=== PATIENT | female | born 1990 | race Hispanic/Latino ===

== ENCOUNTER 2018-06-29 13:52 | Emergency (ER) | payer OTHER ==
[~2018-06-29] VITALS: Ht 157.5 cm; Wt 91.6 kg
--- OUTSIDE RECORDS SUMMARY | 2018-06-29 13:55 | XMS REPORT | Summary of Care ---
Author Author HARRISON Dang, OLYA Organization Unknown Address Unknown Phone Unavailable Care Team Providers Care Factory Focus Technician Name Role Phone JOSE CRUZ BROWNLEE M.D. Unavailable Unavailable OLYA TERRY M.D. Unavailable Unavailable Jose Cruz Brownlee MD Unavailable Unavailable Unavailable Unavailable Functional Status Name Dates Details Functional status health issues are not documented Status: Name Dates Details Cognitive status health issues are not documented Status: Problems Name Dates Details Homelessness (V60.0, Z59.0) Status: Active Diabetes type I (250.01, E10.9) Status: Active Financial problems (V60.2, Z59.8) Status: Active Lower extremity edema (782.3, R60.0) Status: Active History of incarceration (V15.89, Z91.89) Status: Active Medications Name Dates Details None - No Current Medications Active Lantus SoloStar 100 UNIT/ML Subcutaneous Solution Pen-injector Inject 30 untis sq into skin each night * Quantity: 3 Refills: 3 JOSE CRUZ BROWNLEE M.D. * Start : 22-Aug-2017 Active 3 ML Pen Gabapentin 300 MG Oral Capsule TAKE 1 CAPSULE AT BEDTIME. * Quantity: 90 Refills: 2 JOSE CRUZ BROWNLEE M.D. * Start : 22-Aug-2017 Active Allergies and Adverse Reactions Name Dates Details Penicillins (Allergy) Status: Active Procedures Procedure Dates Details Procedures not documented Immunization Name Dates Details Influenza, seasonal, injectable Comments: pt cannot recall Family History Name Dates Details Family history of diabetes mellitus (V18.0, Z83.3) Status: Active Social History Name Dates Details - Status: Name Dates Details Current every day smoker Vital Signs Date Test Result Details [id number]-[id number]:09 Physical Findings 2 Status: Comments: PHQ-9 Adult Depression Screening 6-Zyt-130254:54 BP Systolic 117 mm[Hg] Status: Comments: Location: LUE; Position: Sitting BP Diastolic 76 mm[Hg] Status: Comments: Location: LUE; Position: Sitting Height 62 in Status: Weight 199.375 lb Status: Body Mass Index Calculated 36.47 kg/m2 Status: Body Surface Area Calculated 1.91 m2 Status: Temperature 97.8 f Status: Comments: Method: Temporal Heart Rate 99 /min Status: Respiration Rate 15 /min Status: Physical Findings 0 Status: Comments: Pain Scale Results Date Description Value Details [id number]-Swh-[id number]:21 [O] Hemoglobin A1c (in office) HEMOGLOBIN A1c 10.6 (Abnormal) 7-Lhr-983482:15 Tobacco Use Screening Completed DONE 8-Ryb-401308:34 [QLH] CMP W/EGFR Sodium Level 138 {mEq/l} Range: 135-145 Potassium Level 4.5 {mEq/l} Range: 3.5-5.1 Chloride Level 102 {mEq/l} Range: 95-109 Carbon Dioxide 30 {mEq/l} Range: 24-32 AGAP 10.5 {mEq/l} Range: 10.0-20.0 Glucose Lvl 264 mg/dl (Above high threshold) Range: 70-99 Comments: Adult reference range values reflect the clinical guidelinesof the [place] [employer]. Creatinine Lvl 0.60 mg/dl Range: 0.50-1.40 Blood Urea Nitrogen 6 mg/dl (Below low threshold) Range: 7-22 BUN/Creatinine Ratio 10 Range: 6-25 Total Protein 7.4 g/dl Range: 6.4-8.4 Albumin Lvl 3.5 g/dl Range: 3.5-5.0 Globulin 3.9 g/dl Range: 2.7-4.2 A/G Ratio 0.9 Range: 0.7-1.6 Calcium Level Total 9.3 mg/dl Range: 8.5-10.5 ALT 28 u/l Range: 0-65 AST 13 u/l Range: 0-37 Bili Total 0.3 mg/dl Range: 0.2-1.3 Alk Phos 122 u/l Range: 39-136 eGFR 127 {ML/MIN/1.7} Comments: The eGFR is calculated using the CKD-EPI formula. In most young, healthyindividuals the eGFR will be >90 mL/min/1.73m2. The eGFR declines with age. AneGFR of 60-89 may be normal in some populations, particularly the elderly, forwhom the CKD-EPI formula has not been extensively validated. Use of the eGFR isnot recommended in the following populations:Individuals with unstable creatinine concentrations, including patients and those with serious co-morbid conditions.Patients with extremes in muscle mass or diet.The data above are obtained from the National Kidney Disease Education Program(NKDEP) which additionally recommends that when the eGFR is used in patientswith extremes of body mass index for purposes of drug dosing, the eGFR shouldbe multiplied by the estimated BMI. :34 [QLH] TSH, 3RD GENERATION W/REFLEX TO FT4 TSH 1.750 {uIU/ml} Range: 0.360-3.740 9-Xrp-072670:34 [QH] LIPID PANEL WITH REFLEX TO DIRECT LDL Chol 152 mg/dl Range: <=199 Trig 323 mg/dl (Above high threshold) Range: <=149 HDL Cholesterol 34 mg/dl (Below low threshold) Range: >=61 LDL 53 mg/dl Range: <=99 CHD Risk 4.47 Range: 3.90-5.80 VLDL 65 34 [QH] HIV AB, HIV 1/2, EIA, WITH REFLEXES HIV Ag/Ab 4th Gen Negative Range: Negative :34 [QLH] HEMOGLOBIN A1c Hemoglobin A1c 9.8 % (Above high threshold) Range: <=5.6 :34 [QLH] MICROALBUMIN, RANDOM URINE (W/CREATININE) Urine Microalbumin 49.1 mg/L U Creatinine 67.00 mg/dl Comments: No established reference ranges. Urine Microalbuming Creatinine Ratio 73.3 {MCG/MG_CRE} (Above high threshold) Range: <=30.0 Plan of Care Name Dates Details Planned Observations Planned Goals not documented Planned Encounters Appointment; OLYA TERRY M.D. On: 28-Aug-2017 8:00 Appointment; JOSE CRUZ BROWNLEE M.D. On: 05-Sep-2017 13:15 Interventions Provided Plan* needs cbc, vitamin D checked * CDE * eye exam Instructions Name Dates Details Instructions not documented Encounters Appointment; JOSE CRUZ BROWNLEE M.D. Encounter Diagnosis: Problem not documented On: 22-Aug-2017 13:15 Appointment; OLYA TERRY M.D. Encounter Diagnosis: Problem not documented On: 28-Aug-2017 8:00
[2018-06-29 14:41] VITALS: BP 122/85
[2018-06-29] MEDS ORDERED: ONDANSETRON HCL 4 MG ORAL DISINTEGRATING TAB PO ONE (16:15)
[2018-06-29] MEDS ORDERED: HYDROMORPHONE 2MG/ML 2 MG/ML ML IM ONE ×2 (16:15→17:45)
[2018-07-06] MEDS ORDERED: COLACE100 MG PO (04:49)
[2018-07-06] MEDS ORDERED: SENOKOT8.6 MG PO (04:49)
[2018-07-06] MEDS ORDERED: LEVAQUIN500 MG PO ×3 (04:49→05:12)
== END 2018-06-29 14:42 | disposition home or self-care (01) ==
LOC: ER 13:52
DX: L02.415 Cutaneous abscess of right lower limb (principal)
CPT/HCPCS: 99282

== ENCOUNTER 2018-07-01 18:48 | Emergency (ER) | payer OTHER ==
[~2018-07-01] VITALS: Ht 157.5 cm; Wt 91.6 kg
[2018-07-01] MEDS ORDERED: IBUPROFEN 400 MG TAB ONE (19:26)
[2018-07-01] MEDS ORDERED: ACETAMINOPHEN 325 MG TAB ONE (19:26)
[2018-07-01 19:39] LABS: STREPTOCOCCUS GRP A ANTIGEN NEGATIVE (NEGATIVE)
[2018-07-01 19:48] LABS: INFLUENZAE A&B ANTIGEN (RAPID) NEGATIVE (NEGATIVE)
[2018-07-01 19:54] LABS: CLARITY,URINE TURBID (CLEAR); COLOR,URINE YELLOW (YELLOW); LEUKOCYTE ESTERASE ,URINE 1+ (NEGATIVE); NITRITE,URINE NEGATIVE (NEGATIVE); PROTEIN,URINE DIPSTICK 1+ (NEGATIVE)
[2018-07-01 19:55] LABS: BILIRUBIN,URINE NEGATIVE (NEGATIVE); KETONES,URINE NEGATIVE (NEGATIVE); URINE UROBILINOGEN 0.2 mg/dL (0.2 - 1)
[2018-07-01 19:56] LABS: BACTERIA,URINE FEW /HPF; EPITHELIAL CELLS,URINE FEW /LPF; WBC,URINE (MAN) >50 /HPF (0-5)
[2018-07-01] MEDS ORDERED: IBUPROFEN 600 MG TAB PO ONE (20:00)
[2018-07-01] MEDS ORDERED: IBUPROFEN 200 MG TAB PO ONE (20:00)
[2018-07-01] MEDS ORDERED: ACETAMINOPHEN 325 MG TAB PO ONE (20:00)
--- NOTE | 2018-07-01 20:35 | Diagnostic Imaging Report ---
EXAMINATION: CHEST 2 VIEWS INDICATION: Cough and fever COMPARISON: None FINDINGS: TUBES and LINES: None. LUNGS: Lungs are well inflated. Mild perihilar, peribronchial thickening and perihilar streaky densities may reflect viral infection versus reactive airway disease. Patchy density in the lower lobes. PLEURA: No pleural effusion or pneumothorax. HEART AND MEDIASTINUM: The cardiomediastinal silhouette is unremarkable. BONES AND SOFT TISSUES: No acute osseous lesion. Soft tissues are unremarkable. UPPER ABDOMEN: No free air under the diaphragm. IMPRESSION: Mild perihilar, peribronchial thickening and perihilar streaky densities may reflect viral infection versus reactive airway disease Signed by: Dr. Nash Garza M.D. on 07/01/2018 8:32 PM
[2018-07-01] MEDS ORDERED: LEVOFLOXACIN 500 MG TAB PO ONE (20:45)
[2018-07-02 01:14] VITALS: BP 118/72
[2018-07-06] MEDS ORDERED: COLACE100 MG PO (04:49)
[2018-07-06] MEDS ORDERED: LEVAQUIN500 MG PO ×3 (04:49→05:12)
[2018-07-06] MEDS ORDERED: SENOKOT8.6 MG PO (04:49)
== END 2018-07-01 21:09 | disposition home or self-care (01) ==
LOC: ER 18:48
DX: R50.9 Fever, unspecified (principal); R05 Cough; B34.9 Viral infection, unspecified
CPT/HCPCS: 71046; 81001; 81025; 83518; 87070; 87400

== ENCOUNTER 2018-07-04 11:23 | Observation (INO) | payer OTHER ==
[~2018-07-04] VITALS: Ht 177.8 cm; Wt 91.6 kg
--- OUTSIDE RECORDS SUMMARY | 2018-07-04 11:26 | XMS REPORT ---
Author Author [facility] Address Unknown Phone Unavailable Care Team Providers Care Gambling Broker Name Role Phone Brayan FREEMAN Unavailable Unavailable Problems This patient has no known problems. Allergies, Adverse Reactions, Alerts This patient has no known allergies or adverse reactions. Medications This patient has no known medications. Results Test Description Test Time Test Comments Text Results Atomic Results Result Comments CHEST 2 VIEWS 2018-07-01 20:31:00 [facility] [address] [address] Patient Name: DONN BARRON MR #: [id number] : 1990 Age/Sex: 28/F Req #: [id number] Adm Physician: Ordered by: REDDY MARIA NP Report #: [id number] Location: ER Room/Bed: Procedure: [id number] DX/CHEST 2 VIEWS Exam Date: Exam Time: REPORT STATUS: Signed EXAMINATION: CHEST 2 VIEWS INDICATION: Cough and fever COMPAR ANGELO: None FINDINGS: TUBES and LINES: None. LUNGS: Lungs are well inflated. Mild perihilar, peribronchial thickening and perihilar streaky densities may reflect viral infection versus reactive airway disease. Patchy density in the lower lobes. PLEURA: No pleural effusion or pneumothorax. HEART AND MEDIASTINUM: The cardiomediastinal silhouette is unremarkable. BONES AND SOFT TISSUES: No acute osseous lesion. Soft tissues are unremarkable. UPPER ABDOMEN: No free air under the diaphragm. IMPRESSION: Mild perihilar, peribronchial thickening and perihilar streaky densities may reflect viral infection versus reactive airway disease Signed by: Dr. Nash Hanley M.D. on 07/01/2018 8:32 PM Dictated By: KUMAR HANLEY MD, MD 31 Transcribed By: TANGELA on 07/01/182031 COPY TO: REDDY MARIA NP
[2018-07-04] MEDS ORDERED: SODIUM CHLORIDE 0.9% 1000ML 2,000 ML IV STA (11:41)
[2018-07-04] MEDS ORDERED: ACETAMINOPHEN 325 MG TAB ONE (11:41)
[2018-07-04] MEDS ORDERED: SODIUM CHLORIDE 0.9% 1000ML 1,000 ML ONE (11:45)
[2018-07-04] MEDS ORDERED: ACETAMINOPHEN 325 MG TAB PO ONE (11:45)
[2018-07-04] MEDS ORDERED: ONDANSETRON HCL INJ 2MG/ML 2ML 2 MG/ML VIAL ONE (11:45)
[2018-07-04] MEDS ORDERED: ONDANSETRON HCL INJ 2MG/ML 2ML 2 MG/ML VIAL IV STA (11:50)
[2018-07-04] MEDS ORDERED: FAMOTIDINE 20 MG/2 ML VIAL IV STA (11:52)
[2018-07-04 11:54] LABS: BASOPHILS % 0.3 % (0.0-1.0); EOSINOPHILS # (AUTO) 0.3 (0.0-0.4); EOSINOPHILS % 7.6 % (0.0-6.0); HEMATOCRIT 37.3 % (34.2-44.1); HEMOGLOBIN 13.1 g/dL (12.0-16.0); LYMPHOCYTES # (AUTO) 0.5 (1.0-3.2); LYMPHOCYTES % 12.9 % (18.0-39.1); MEAN CORPUSCULAR HEMOGLOBIN 29.6 pg (28-32); MEAN CORPUSCULAR HGB CONC 35.1 g/dL (31-35); MEAN CORPUSCULAR VOLUME 84.4 fL (81-99); MONOCYTES # (AUTO) 0.4 (0.2-0.8); MONOCYTES % 11.2 % (4.4-11.3); NEUTROPHILS # (AUTO) 2.4 (2.1-6.9); PLATELET COUNT 241 x10e3/uL (140-360); RED BLOOD COUNT 4.42 x10e6/uL (3.6-5.1); RED CELL DISTRIBUTION WIDTH 11.9 % (11.7-14.4)
[2018-07-04 12:00] LABS: INR 0.96; PROTHROMBIN TIME 13.3 seconds (11.9-14.5)
[2018-07-04] MEDS ORDERED: ACETAMINOPHEN 325 MG TAB PO PRN ×2 (12:00→17:30)
[2018-07-04] MEDS ORDERED: DIPHENHYDRAMINE HCL INJ 50 MG/ML VIAL IV ONE (12:00)
[2018-07-04 12:01] LABS: PARTIAL THROMBOPLASTIN TIME 36.7 seconds (23.8-35.5)
[2018-07-04 12:12] LABS: ALBUMIN 3.1 g/dL (3.5-5.0); ALBUMIN/GLOBULIN RATIO 0.7 (0.8-2.0); ANION GAP 12.1 mmol/L (8-16); CALCIUM 9.3 mg/dL (8.4-10.2); CREATININE, SERUM 1.28 mg/dL (0.57-1.11); MAGNESIUM 1.6 MG/DL (1.3-2.1); POTASSIUM 4.1 mmol/L (3.5-5.1)
--- NOTE | 2018-07-04 12:15 | NUR ---
STRAIGHT BRYSON UA DONE ORDERED. PT TOLERATED WELL. PT NOTED TO HAVE REDNESS, NO DRAINAGE OR DISCHARGE NOTED TO ENTIRE PERINEUM. PT REPORTED RECENT DX OF UTI AND IS CURRENTLY TAKING LEVAQUIN FOR UTI. PT ALSO ON BATRIM FOR RECENT ABSCESS TO RT KNEE. INFORMED JAMAR CAGE OF THE REDNESS NOTED.
[2018-07-04] MEDS: VANCOMYCIN 1GM/NS 250 ML 250 ML IV SCH ×2 (12:18→21:08)
--- NOTE | 2018-07-04 12:20 | NUR ---
RUIZ RIOS RN OF COLLECTED UA AND REDNESS TO PERINEUM.
[2018-07-04 13:04] LABS: CLARITY,URINE CLOUDY (CLEAR); COLOR,URINE YELLOW (YELLOW); KETONES,URINE NEGATIVE (NEGATIVE); LEUKOCYTE ESTERASE ,URINE 1+ (NEGATIVE); NITRITE,URINE NEGATIVE (NEGATIVE); PROTEIN,URINE DIPSTICK 2+ (NEGATIVE)
[2018-07-04 13:05] LABS: BILIRUBIN,URINE NEGATIVE (NEGATIVE); URINE UROBILINOGEN 0.2 mg/dL (0.2 - 1)
--- NOTE | 2018-07-04 13:13 | Diagnostic Imaging Report ---
EXAMINATION: CHEST SINGLE (PORTABLE) INDICATION: Fever. COMPARISON: Chest radiograph 07/01/2018. FINDINGS: TUBES and LINES: None. LUNGS: Lungs are not well inflated. No evidence of pneumonia or pulmonary edema. Interval resolution of previously noted interstitial opacity. PLEURA: No pleural effusion or pneumothorax. HEART AND MEDIASTINUM: The cardiomediastinal silhouette is unremarkable. BONES AND SOFT TISSUES: No acute osseous lesion. Soft tissues are unremarkable. UPPER ABDOMEN: No free air under the diaphragm. IMPRESSION: No evidence of pneumonia. Signed by: Dr. Rosie Knox MD on 07/04/2018 1:10 PM
[2018-07-04] MEDS ORDERED: INSULIN REGULAR, HUMAN 100 UNIT/1 ML 3ML VIAL SQ ONE (13:15)
[2018-07-04 13:18] LABS: BACTERIA,URINE MANY /HPF; EPITHELIAL CELLS,URINE FEW /LPF; WBC,URINE (MAN) 21-50 /HPF (0-5)
--- NOTE | 2018-07-04 14:22 | NUR ---
BESIDE BLOOD GLUCOSE 234 MG/DL. INFORMED JAMAR CAGE OF THIS. NO NEW ORDERS AT THIS TIME.
[2018-07-04] MEDS ORDERED: CEFTRIAXONE SOD 1 GM/NS 50 ML 50 ML IV ONE (15:30)
--- NOTE | 2018-07-04 15:38 | Diagnostic Imaging Report ---
EXAM: CT Abdomen and Pelvis WITHOUT contrast INDICATION: Febrile, suspect renal stone. COMPARISON: None. TECHNIQUE: Abdomen and pelvis were scanned utilizing a multidetector helical scanner from the lung base to the pubic symphysis without administration of IV contrast. Absence of intravenous contrast decreases sensitivity for detection of focal lesions and vascular pathology. Coronal and sagittal reformations were obtained. Routine protocol was performed. IV CONTRAST: None. ORAL CONTRAST: Water RADIATION DOSE: Total DLP: 734.9 mGy*cm Dose modulation, iterative reconstruction, and/or weight based adjustment of the mA/kV was utilized to reduce the radiation dose to as low as reasonably achievable. COMPLICATIONS: None FINDINGS: LINES and TUBES: None. LOWER THORAX: Unremarkable HEPATOBILIARY: Diffuse mild fatty liver. No focal hepatic lesions. No biliary ductal dilation. GALLBLADDER: No radio-opaque stones or sludge. No wall thickening. SPLEEN: No splenomegaly. PANCREAS: No focal masses or ductal dilatation. ADRENALS: No adrenal nodules KIDNEYS/URETERS: No hydronephrosis. No evidence of mass. No stones. GI TRACT: No abnormal distention, wall thickening, or evidence of bowel obstruction. Appendix is normal. PELVIC ORGANS/BLADDER: Unremarkable. LYMPH NODES: No lymphadenopathy. VESSELS: Unremarkable. PERITONEUM / RETROPERITONEUM: No free air or fluid. BONES: Unremarkable. SOFT TISSUES: Unremarkable. IMPRESSION: No evidence of renal stone. Diffuse mild fatty liver. Signed by: Dr. Rosie Knox MD on 07/04/2018 3:34 PM
[2018-07-04] MEDS ORDERED: IBUPROFEN 600 MG TAB PO PRN (17:30)
[2018-07-04] MEDS ORDERED: DEXTROSE 50% SYRINGE 50 ML IV PRN (17:30)
[2018-07-04] MEDS: CEFTRIAXONE SOD 1 GM/NS 50 ML 50 ML IV SCH (17:35)
[2018-07-04] MEDS: DIPHENHYDRAMINE HCL 25 MG CAP PO PRN (18:27)
--- NOTE | 2018-07-04 18:50 | NUR ---
RECEIVED REPORT FROM PREVIOUS NURSE. CALL LIGHT WITHIN REACH. NO PAIN OR DISTRESS
[2018-07-04 20:00] VITALS: BP 124/77
[2018-07-04] MEDS: INSULIN REGULAR, HUMAN 100 UNIT/1 ML 3ML VIAL SQ SCH (20:25)
[2018-07-04] MEDS ORDERED: SODIUM CHLORIDE 0.9% 250ML 250 ML ONE (21:31)
[2018-07-05] VITALS (8 sets, daily range): BP systolic 112–127; BP diastolic 60–76
--- NOTE | 2018-07-05 00:23 | NUR ---
Patient complaining of acid reflux. Called and got orders by Dr. Rosales to give the patient Pantoprazole, 40 mg daily.
[2018-07-05] MEDS: PANTOPRAZOLE SOD 40 MG TABEC PO SCH ×2 (00:39→09:17)
[2018-07-05] MEDS: DIPHENHYDRAMINE HCL 25 MG CAP PO PRN ×2 (00:39→06:25)
[2018-07-05] MEDS: CEFTRIAXONE SOD 1 GM/NS 50 ML 50 ML IV SCH ×2 (05:34→16:45)
--- NOTE | 2018-07-05 07:41 | NUR ---
History and Physical cc: fever HPI: 28yoF, pcp?, developed fever for 5 days, Tmax 100.1 Some nausea; no diarrhea/dysuria. PMH: UTI, obesity, DM2 PSHx; csection allergies see emr fh/sh; single; no etoh/cigs/illicits meds; see MAR ROS: no SOLIS/dizziness/leg pain/diarrhea/skin rash/back pain/confusion v/s; revd pe; tired appeairng anicteric ns1s2 mod bs soft nt nd no e/t skin dry n. affect a&ox3; voss labs/meds; rev'd A/P: 28yoF UTI Febrile illness YEE Hyponatremia DM2 PLAN ceftriaxone/vanco vanco trough before 3rd dose hba1c/lipids rehydrate;
[2018-07-05] MEDS ORDERED: ACETAMINOPHEN 325 MG TAB PO PRN (07:45)
[2018-07-05] MEDS ORDERED: SODIUM CHLORIDE 0.9% 1000ML 1,000 ML IV SCH (07:45)
[2018-07-05] MEDS ORDERED: SENNOSIDES 8.6 MG TAB PO PRN (07:45)
[2018-07-05] MEDS ORDERED: ONDANSETRON HCL INJ 2MG/ML 2ML 2 MG/ML VIAL IV PRN (07:45)
[2018-07-05 08:51] LABS: CHOL/HDL RATIO 7.2 (3.0-3.6); CHOLESTEROL 130 MD/DL (0-199); HDL CHOLESTEROL 18 MG/DL (40-60); TRIGLYCERIDES 502 MG/DL (0-149)
[2018-07-05 09:16] LABS: ANION GAP 10.9 mmol/L (8-16); BLOOD UREA NITROGEN 8 mg/dL (7-26); BUN/CREATININE RATIO 10 (6-25); CARBON DIOXIDE 22 mmol/L (22-29); CHLORIDE 101 mmol/L (98-107); CREATININE, SERUM 0.82 mg/dL (0.57-1.11); EST GLOMERULAR FILTRATION RATE > 60 ML/MIN (60-); GLUCOSE 245 mg/dL (74-118); MAGNESIUM 1.6 MG/DL (1.3-2.1); POTASSIUM 3.9 mmol/L (3.5-5.1); SODIUM 130 mmol/L (136-145)
[2018-07-05] MEDS: INSULIN REGULAR, HUMAN 100 UNIT/1 ML 3ML VIAL SQ SCH ×4 (09:17→22:14)
[2018-07-05] MEDS: FAMOTIDINE 20 MG TAB PO SCH ×2 (09:17→16:45)
[2018-07-05] MEDS: VANCOMYCIN 1GM/NS 250 ML 250 ML IV SCH ×2 (10:40→22:15)
[2018-07-05] MEDS ORDERED: FENTANYL CITRATE/PF 100MCG/2 ML INJ ONE (11:28)
--- NOTE | 2018-07-05 14:47 | NUR ---
WOUND CARE CONSULTATION: THIS IS A 28 YEAR OLD FEMALE PATIENT ADMITTED TO [facility] FOR AN ALLERGIC REACTION TO DRUG, FEVER, AND UTI. HEAD TO TOE SKIN ASSESSMENT PREFORMED. THE PATIENT DOES NOT HAVE ANY OPEN WOUNDS AND NO RASH NOTED TO SKIN. PATIENT STATED "THE RASH WAS PRESENT IN THE ER YESTERDAY BUT HAS NOW RESOLVED. INSTRUCTED PATIENT NOT TO SCRATCH THE SKIN IF ITCHING OCCURS TO PREVENT BREAKS IN THE SKIN FROM SCRATCHING; PATIENT VERBALIZED UNDERSTANDING. PATIENT SAID HER ITCHING IS CONTROLLED WITH PRN BENADRYL SHE IS RECEIVING. LABS: WBC3.56 [id number] [id number] BLOOD CULTURE PENDING. URINE CULTURE PENDING. RECOMMENDATION: -APPLY ALTERNATING PRESSURE RELIEF MATTRESS. -APPLY BILATERAL HEEL PROTECTORS WITH PILLOW SUSPENSION. -ENCOURAGE THE PATIENT TO TURN EVERY 2 HOURS AND PRN. -NURSING TO APPLY HYDROCORTISONE CREAM TO AFFECTED AREAS OF SKIN TID PRN FOR ITCH. THANK YOU FOR THIS WOUND CARE CONSULT. Addendum: 07/05/18 at 1457 by Antionette Centeno RN Amended: Links added.
[2018-07-05] MEDS ORDERED: HYDROCORTISONE 1% CREAM 30 GM TUBE TOP PRN (15:00)
[2018-07-05] MEDS: DOCUSATE SODIUM 100 MG CAP PO SCH ×2 (16:00→16:45)
[2018-07-05] MEDS: SENNOSIDES 8.6 MG TAB PO SCH (16:00)
--- NOTE | 2018-07-05 19:00 | NUR ---
Received report from previous nurse. Patient in no pain or distress. Call light within reach. Patient is A&Ox3.
[2018-07-05] MEDS ORDERED: ZOLPIDEM TARTRATE 5 MG TAB PO PRN (21:00)
[2018-07-06] VITALS: BP 103/56
[2018-07-06 01:09] VITALS: BP 103/56
[2018-07-06 04:00] VITALS: BP 104/55
[2018-07-06] MEDS ORDERED: SENOKOT8.6 MG PO (04:49)
[2018-07-06] MEDS ORDERED: LEVAQUIN500 MG PO ×3 (04:49→05:12)
[2018-07-06] MEDS ORDERED: COLACE100 MG PO (04:49)
[2018-07-06] MEDS: CEFTRIAXONE SOD 1 GM/NS 50 ML 50 ML IV SCH (05:23)
--- NOTE | 2018-07-06 07:38 | NUR ---
Gave report to oncoming nurse. Patient in bed. No pain or distress. call light within reach. Daughter at bedside
[2018-07-06 07:45] VITALS: BP 137/79
[2018-07-06 08:00] VITALS: BP 137/79
[2018-07-06] MEDS: INSULIN REGULAR, HUMAN 100 UNIT/1 ML 3ML VIAL SQ SCH ×2 (08:30→12:30)
[2018-07-06] MEDS ORDERED: ONDANSETRON HCL 4 MG ORAL DISINTEGRATING TAB PO PRN (08:45)
[2018-07-06] MEDS: FAMOTIDINE 20 MG TAB PO SCH (08:50)
[2018-07-06] MEDS: PANTOPRAZOLE SOD 40 MG TABEC PO SCH (08:50)
[2018-07-06] MEDS: SENNOSIDES 8.6 MG TAB PO SCH (08:50)
[2018-07-06] MEDS: VANCOMYCIN 1GM/NS 250 ML 250 ML IV SCH (08:50)
[2018-07-06] MEDS: DOCUSATE SODIUM 100 MG CAP PO SCH (08:50)
[2018-07-06] MEDS: PREDNISONE 20 MG TAB PO SCH ×2 (08:50→09:00)
[2018-07-06] MEDS ORDERED: CEFEPIME HCL 1 GM VIAL IV SCH (10:45)
[2018-07-06] MEDS ORDERED: METHYLPREDNISOLONE SOD SUCC 125 MG/2ML VIAL IV NR (11:15)
[2018-07-06] MEDS ORDERED: DIPHENHYDRAMINE HCL INJ 50 MG/ML VIAL IV NR (11:15)
[2018-07-06] MEDS ORDERED: SODIUM CHLORIDE 0.9% IV ONE (11:30)
[2018-07-06] MEDS ORDERED: FAMOTIDINE 20 MG/2 ML VIAL IV NR (11:30)
[2018-07-06] MEDS ORDERED: CEFEPIME HCL IV ONE (11:30)
[2018-07-06 11:44] VITALS: BP 137/82
--- NOTE | 2018-07-06 13:01 | NUR ---
Patient tolerated Cefepime 250mg IV x1 without any reactions. dr Rosales called to notify, received order to provide patients pharmacy information and demographics for Dr. Rosales to call in antibiotic Rx. Patient and family updated.
[2018-07-06] MEDS ORDERED: CEFUROXIME500 MG PO (13:54)
--- NOTE | 2018-07-06 15:00 | NUR ---
PATIENT DISCHARGED HOME WITH WRITTEN INSTRUCTIONS AND PRESCRIPTIONS. SHE VERBALIZED UNDERSTANDING. IV DC'D, CATH INTACT AND SMALL DRESSING APPLIED. PATIENT WHEELED TO PERSONAL VEHICLE FOR MOM TO TAKE HOME IN STABLE CONDITION
== END 2018-07-06 15:05 | disposition home or self-care (01) ==
LOC: ER 11:23 → ERHOLD 17:21 → IMCU 18:39
PROVIDERS: ADMIT Internal Medicine; ATTEND Internal Medicine
DX: N30.01 Acute cystitis with hematuria (principal); L50.0 Allergic urticaria; T37.0X5A Adverse effect of sulfonamides, initial encounter; Z88.0 Allergy status to penicillin; E11.9 Type 2 diabetes mellitus without complications; N17.9 Acute kidney failure, unspecified; E87.1 Hypo-osmolality and hyponatremia; Z79.1 Long term (current) use of non-steroidal anti-inflammatories (NSAID)
CPT/HCPCS: 36415 ×3; 71045; 74176; 80048; 80053; 80061; 80202; 81001; 81025; 82948 ×3; 83036; 83605; 83735 ×2; 85025; 85610; 85730; 87040; 87086 ×2; 87186; 96360; 99284; G0378 ×3; J0692; J0696 ×3; J1200; J1817 ×2; J2405; J3370 ×3; J7030 ×3; J7050; J7512; S0164 ×2; J2930

== ENCOUNTER → 2020-04-23 | Outpatient (CLI) | payer OTHER ==
[~2020-04-23] MED LIST: CEFUROXIME500 MG PO; COLACE100 MG PO; COVID-19 VACC, MRNA(MODERNA)/PF 100 MCG/0.5 ML VIAL IM ONE; LEVAQUIN500 MG PO; SENOKOT8.6 MG PO
== END ==
LOC: VACCPMC 16:30
DX: Z23 Encounter for immunization (principal); Z20.822 Contact with and (suspected) exposure to COVID-19

== ENCOUNTER → 2020-05-25 | Outpatient (CLI) | payer OTHER | END | DRG 951 | LOC: VACCPMC 10:32 | DX: Z23 Encounter for immunization (principal); Z20.822 Contact with and (suspected) exposure to COVID-19 | CPT/HCPCS: 0012A; 91301 ==